=== PATIENT | male | born 1980 | race Caucasian/White ===

== ENCOUNTER 2017-06-06 11:17 | Emergency (ER) | payer OTHER ==
[~2017-06-06] VITALS: Wt 78.0 kg
[~2017-06-06 11:17] MED LIST: HYDROCODONE BIT1 T11 PO; NAPROXEN500 MG PO
[2017-06-06] MEDS ORDERED: PROVENTIL HFA6.7 GM INH (11:27)
== END 2017-06-06 14:03 | disposition home or self-care (01) ==
LOC: ED 11:17
DX: S62.611A Displaced fracture of proximal phalanx of left index finger, initial encounter for closed fracture (principal); F17.200 Nicotine dependence, unspecified, uncomplicated; W23.0XXA Caught, crushed, jammed, or pinched between moving objects, initial encounter; Y93.89 Activity, other specified; Y92.009 Unspecified place in unspecified non-institutional (private) residence as the place of occurrence of the external cause; Y99.9 Unspecified external cause status

== ENCOUNTER 2017-11-13 10:29 | Emergency (ER) | payer OTHER ==
[~2017-11-13] VITALS: Ht 172.7 cm; Wt 90.7 kg
[~2017-11-13 10:29] MED LIST changes: +PROVENTIL HFA6.7 GM INH
== END 2017-11-13 11:53 | disposition home or self-care (01) ==
LOC: ED 10:29
DX: S63.92XA Sprain of unspecified part of left wrist and hand, initial encounter (principal); F17.200 Nicotine dependence, unspecified, uncomplicated; F10.10 Alcohol abuse, uncomplicated; Z79.899 Other long term (current) drug therapy; X58.XXXA Exposure to other specified factors, initial encounter; Y93.89 Activity, other specified; Y92.89 Other specified places as the place of occurrence of the external cause; Y99.8 Other external cause status